=== PATIENT | female | born 1940 | race Two or more races ===

== ENCOUNTER 2019-04-23 06:38 | Emergency (ER) | payer OTHER ==
[~2019-04-23] VITALS: Ht 157.5 cm; Wt 89.8 kg
[~2019-04-23 06:38] MED LIST: AVALIDE 300-12.1 TAB; LEVAQUIN500 MG PO; METROPOLOL; PLAVIX75 MG; SYNTHROID50 MCG; ZOCOR40 MG
== END 2019-04-23 09:19 | disposition home or self-care (01) ==
LOC: ER 06:38
DX: S40.011A Contusion of right shoulder, initial encounter (principal); W18.09XA Striking against other object with subsequent fall, initial encounter; Y93.89 Activity, other specified; Y92.89 Other specified places as the place of occurrence of the external cause; Y99.8 Other external cause status

== ENCOUNTER 2020-03-10 13:07 | Outpatient (CLI) | payer OTHER | END 2020-03-10 14:00 | disposition home or self-care (01) | LOC: MAMO-SONO 13:07 | PROVIDERS: ATTEND Internal Medicine | DX: Z12.31 Encounter for screening mammogram for malignant neoplasm of breast (principal); N64.59 Other signs and symptoms in breast; E03.8 Other specified hypothyroidism; E20.8 Other hypoparathyroidism; N64.4 Mastodynia; E78.2 Mixed hyperlipidemia; I11.9 Hypertensive heart disease without heart failure; I25.10 Atherosclerotic heart disease of native coronary artery without angina pectoris; I25.2 Old myocardial infarction; I73.89 Other specified peripheral vascular diseases; E04.2 Nontoxic multinodular goiter ==

== ENCOUNTER 2020-03-10 14:39 | Outpatient (CLI) | payer OTHER | END 2020-03-10 14:46 | disposition home or self-care (01) | LOC: NUCLEAR 14:39 | PROVIDERS: ATTEND Internal Medicine | DX: M85.89 Other specified disorders of bone density and structure, multiple sites (principal) ==

== ENCOUNTER → 2024-02-02 | Emergency (ER) | payer OTHER ==
[~2024-02-02] VITALS: Ht 157.5 cm; Wt 80.3 kg
[~2024-02-02] MED LIST changes: +ACETAMINOPHEN 325 MG TABLET PO STA; +ACETAMINOPHEN 500 MG GEL..CAP PO ONE; +AVAPRO150 MG PO; +ECOTRIN81 MG; +NORVASC2.5 M1 PO
== END | disposition left against medical advice (07) ==
LOC: ER 07:36
DX: M79.672 Pain in left foot (principal); Z88.1 Allergy status to other antibiotic agents; Z88.7 Allergy status to serum and vaccine